=== PATIENT | male | born 1950 | race Caucasian/White ===

== ENCOUNTER 2019-05-17 21:19 | Inpatient (IN) | payer OTHER, SELFPAY ==
--- NOTE | ~2019-05-17 | CT_ITS ---
EXAMINATION: CT brain wo con EXAM DATE: 05/20/2019 19:43 INDICATION: Temporary change in awareness, confusion, hallucinations. TECHNIQUE: Spiral CT of the head was performed without contrast. Axial, coronal and sagittal images were reviewed. The dose-length product (DLP) for this examination was 605.33 mGy-cm. The exposure w as tailored according to patient size, and iterative reconstruction (ASIR) was used as additional dos e reduction technique. There is no prior study for comparison. FINDINGS: There is no acute intraparenchymal hemorrhage. No evidence of intraparenchymal brain mass lesion. No evidence of acute infarction. Please note that initial head CT has limited sensitivity f or small or acute infarctions. There is mild periventricular and subcortical hypodensity, nonspecific but probably related to small vessel ischemic disease. There is mild prominence of the sulci and v entricles related to cerebral atrophy. There is intracranial carotid arteriosclerosis. There are n o extra-axial collections. There is no mass effect or midline shift. The orbits are unremarkable. Soft tissue is unremarkable. The visualized sinuses and mastoid air cells are well aerated. IMPRESSION: 1. No acute intracranial findings. 2. Chronic age related findings. Reviewed, dictated and finalized at location A.
--- NOTE | ~2019-05-17 | XR_ITS ---
XR chest 2V 05/19/2019 09:17 Indication: Hypoxia. Cough. CHF. Procedure: AP portable chest Comparison: No prior studies Findings: Cardiomegaly. Asymmetric airspace disease, right greater than left Bilateral pleural effusi ons, right greater than left. Pacemaker leads in expected position. Impression: 1: Bilateral asymmetric airspace disease, likely edema. 2: Bilateral pleural effusions, right greater than left. 3: Cardiomegaly. Reviewed, dictated and finalized at location A. Impression: 1: Bilateral asymmetric airspace disease, likely edema. 2: Bilateral pleural effusions, right greater than left. 3: Cardiomegaly.
[2019-05-17 21:25] VITALS: BP 107/69; PULSE 55; RESP 26; TEMP 36.9; O2SAT 95
[2019-05-17 21:46] VITALS: BP 112/85; PULSE 55; RESP 25; O2SAT 97
[2019-05-17 22:11] LABS: Basophils Percent Auto 0.2 % (0.2-1.2); Eosinophils Percent Auto 0.2 % (0-4.4); Hematocrit 39.9 % (42.0-52.0); Hemoglobin 12.5 g/dL (14.0-18.0); Immature Granulocyte Absolute 0.05 K/mm3 (0.00-0.031); Immature Granulocyte Percent A 0.6 % (0-0.5); Lymphocytes Absolute Auto 0.51 K/mm3 (0.9-3.2); Mean Corpuscular HGB Conc 31.3 g/dl (32-36); Mean Corpuscular Hemoglobin 30.2 pg (26-34); Mean Corpuscular Volume 96.4 fl (80-100); Mean Platelet Volume 12.8 fl (7.4-10.4); Monocytes Absolute Auto 0.5 K/mm3 (0.1-0.6); Monocytes Percent Auto 5.9 % (2.6-8.5); Neutrophils Absolute Auto 7.3 K/mm3 (1.3-6.7); Neutrophils Percent Auto 87.1 % (45.5-73.1); Nucleated Red Blood Cells Perc 0.4 % (0.0-0.2); Platelet Count Result 276 k/mm3 (150-375); Red Blood Count 4.14 M/mm3 (4.6-6.20); Red Cell Distribution Width 19.6 % (11.5-14.5); White Blood Count 8.4 K/mm3 (4.5-10.0)
--- NOTE | 2019-05-17 22:32 | ED.GIBLEED ---
HPI - GI Bleed General Chief complaint: GI Bleed Stated complaint: poss gi bleed Time Seen by Provider: 05/17/19 22:00 Source: patient and RN notes reviewed Mode of arrival: EMS Limitations: no limitations History of Present Illness HPI Narrative: Pt is a 68 y/o male presenting to the ED c/o hematomchezia. Pt reports he has been experiencing stools with bright red blood. Pt responds it comes and goes when asked how long he has been experiencing the bleeding. Pt also reports coccyx pain for 1.5 weeks, but denies abdominal pain. Pt denies a Hx of hemorrhoids. Onset (ago): unknown Pain Consistency: other (None) Associated symptoms: other (Coccyx pain) Related Data Allergies Allergy/AdvReac Type Severity Reaction Status Date / Time hydrocortisone Allergy Unknown Verified 05/17/19 23:08 [From Cortizone-10] Review of Systems Review of Systems: All systems reviewed & are unremarkable except as noted in HPI and below Gastrointestinal: Gastrointestinal: Denies abdominal pain and Reports hematochezia Musculoskeletal: Musculoskeletal: Reports other (Coccyx pain) [facility] Social History Social History Smoking status: Unknown if ever smoked Exam Narrative: Exam Narrative: GENERAL: Ill-appearing, Pale, and in no acute distress. HEAD: Normocephalic, atraumatic. EYES: PERRLA and EOMI. ENT: Nares clear, Mucous membranes moist. NECK: Supple. CHEST: Clear to auscultation. No respiratory distress. HEART: Regular rate and rhythm. No murmur heard. Normal peripheral pulses. ABDOMEN: Soft, non tender, non distended, normal active bowel sounds. Rectal Maroon stool in the rectum EXTREMITIES: Normal range of motion. has edema. SKIN: Warm, dry, no rash. NEURO: No focal deficits. Alert and oriented x3. PSYCH: Normal mood and affect. Course Course Emergency Course: informed pt about his lab will admit to the hospital . Discussed with Dr. Hodges agreed to admit. Vital Signs Vital signs: Vital Signs Temperature 36.9 C 05/17/19 21:25 Pulse Rate 55 L 05/17/19 21:25 Respiratory Rate 26 H 05/17/19 21:25 Blood Pressure 107/69 05/17/19 21:25 Pulse Oximetry 95 05/17/19 21:25 Temperature 36.9 C 05/17/19 21:25 Pulse Rate 53 L 05/17/19 23:38 Respiratory Rate 25 H 05/17/19 23:38 Blood Pressure 109/63 05/17/19 23:38 Pulse Oximetry 97 05/17/19 23:38 MDM - GI Bleed Lab Data Result diagrams: 05/17/19 22:06 05/17/19 22:34 Labs: Lab Results 05/17/19 05/17/19 05/17/19 Range/Units 22:06 22:34 22:34 WBC 8.4 (4.5-10.0) K/mm3 RBC 4.14 L (4.6-6.20) M/mm3 Hgb 12.5 L (14.0-18.0) g/dL Hct 39.9 L (42.0-52.0) % MCV 96.4 (80-100) fl MCH 30.2 (26-34) pg MCHC 31.3 L (32-36) g/dl RDW 19.6 H (11.5-14.5) % Plt Count 276 (150-375) k/mm3 MPV 12.8 H (7.4-10.4) fl Immature Gran % (Auto) 0.6 H (0-0.5) % Neut % (Auto) 87.1 H (45.5-73.1) % Lymph % (Auto) 6.0 L (18.3-44.2) % [place] % (Auto) 5.9 (2.6-8.5) % Eos % (Auto) 0.2 (0-4.4) % Baso % (Auto) 0.2 (0.2-1.2) % Lymph # (Auto) 0.51 L (0.9-3.2) K/mm3 [place] # (Auto) 0.5 (0.1-0.6) K/mm3 Eos # (Auto) 0.0 (0-0.3) K/mm3 Baso # (Auto) 0.0 (0.0-0.1) K/mm3 Abs Immat Gran (auto) 0.05 H (0.00-0.031) K/mm3 Absolute Neuts (auto) 7.3 H (1.3-6.7) K/mm3 Absolute Nucleated RBC 0.0 (0.0-0.012) K/mm3 Nucleated RBC % 0.4 H (0.0-0.2) % PT 31.0 H (11.1-14.7) Seconds INR 3.0 Sodium 130 L (137-145) mmol/L Potassium 3.3 L (3.4-5.0) mmol/L Chloride 87 L (98-107) mmol/L Carbon Dioxide 35 H (22-30) mmol/L BUN 41 H (9-20) mg/dL Creatinine 1.50 H (0.7-1.3) mg/dL Estim Creat Clear Calc Not Reportable Estimated GFR 47 L (59 - ) Glucose 254 H (75-110) mg/dL Calcium 8.2 L (8.4-10.2) mg/dL Total Bilirubin 1.6 H (0.2-1.3) mg/dL AST 68 H (17-59)
[2019-05-17 22:52] LABS: Alanine Aminotransferase 69 U/L (4-50); Alkaline Phosphatase 158 U/L (38-126); Aspartate Amino Transferase 68 U/L (17-59); Bilirubin,Total 1.6 mg/dL (0.2-1.3); Blood Urea Nitrogen 41 mg/dL (9-20); Calcium 8.2 mg/dL (8.4-10.2); Carbon Dioxide 35 mmol/L (22-30); Chloride 87 mmol/L (98-107); Estimated Glomerular Filt Rate 47; Glucose 254 mg/dL (75-110); Potassium 3.3 mmol/L (3.4-5.0); Sodium 130 mmol/L (137-145)
[2019-05-17] MEDS: SODIUM CHLORIDE 0.9% IV 1,000 ML 125 ML IV CONT (23:09)
[2019-05-17] MEDS: MORPHINE SULFATE 4 MG/ML INJ IV PUSH (23:10)
[2019-05-17] MEDS: ONDANSETRON INJ 4 MG/2 ML VIAL IV PUSH (23:10)
[2019-05-17 23:17] VITALS: BP 92/55; PULSE 58; RESP 19; O2SAT 95
[2019-05-17 23:38] VITALS: BP 109/63; PULSE 53; RESP 25; O2SAT 88; O2SAT 97
[2019-05-18] VITALS (10 sets, daily range): BP systolic 107–113; BP diastolic 66–83; PULSE 2–66; RESP 16–18; TEMP 36.2–36.4; O2SAT 92–100; BMI 27.7
[2019-05-18 00:36] LABS: Hematocrit 39.5 % (42.0-52.0); Hemoglobin 12.4 g/dL (14.0-18.0)
--- NOTE | 2019-05-18 02:28 | ADMGEN ---
This patient, Jorden Brown, was admitted to Medical Room 343-01. Patient/family oriented to hospital policies and general routines including ID bracelet, bed and alarms, visiting hours, pain management, procedures, bathroom and other care routines, personal items, smoking policy, room service/diet, and visiting hours. Valuables list has been completed. Information on how to activate the Rapid Response Team has been discussed. Patient/Family are encouraged to report perceived risks to care and to ask questions if they do not understand what they are told or what they should do.
[2019-05-18 05:51] LABS: Hematocrit 38.2 % (42.0-52.0); Hemoglobin 11.8 g/dL (14.0-18.0)
--- NOTE | 2019-05-18 05:54 | PM.IMHP ---
H&P: HPI History of Present Illness Chief complaint: Bloody stools Narrative: Date and time of patient contact: 05/18/2019 at 5:55 a.m. Jorden Brown is a 68 year old male with a complex past medical history including CVA, CHF, chronic kidney disease, insulin-dependent diabetes, and chronic decubitus ulcers who presented to the ER from [facility] via EMS due to bloody stools. The patient had dark red stools that had the appearance of ?blue berries in it.? In the ER the patient had had a melanotic stool. When the patient arrived on the medical floor he had a had a small amount of dark stool with blood present that smelled of melena. He had labs drawn at the senior care on the which demonstrated hemoglobin of 12. He had chest x-ray also performed on the which demonstrated central venous congestion without overt pulmonary edema. Evidently influenza had been moving throughout the senior care and so the patient had been placed on empiric Tamiflu but was not having influenza symptoms. The patient is unable to provide much history can only answer yes or no questions. He is confused but oriented to person and place. The patient has known decubitus ulcers to his left heel that is unstageable. Has a known superficial ulcers (5-6) on his coccyx. Source of information: ER records and senior care records. Review of Systems Review of Systems: ROS unobtainable: unobtainable due to mental condition [facility] Past Medical History Medical History (Updated 05/18/19 @ 07:03 by Ruby Hodges DO) Chronic anticoagulation Chronic kidney disease, stage 3 Combined systolic and diastolic congestive heart failure Coronary artery disease Diabetic peripheral neuropathy Diabetic retinopathy Dupuytren contracture Essential hypertension Ischemic cardiomyopathy Left bundle branch block Major depressive disorder Moderate protein-calorie malnutrition Prostate cancer PTSD (post-traumatic stress disorder) Type 2 diabetes mellitus with insulin therapy Vitamin D deficiency Surgical History Surgical History (Updated 05/18/19 @ 06:39 by Ruby Hodges DO) History of amputation of hallux Right great toe amputation Presence of combination internal cardiac defibrillator (ICD) and pacemaker Family History Family History (Updated 05/18/19 @ 06:40 by Ruby Hodges DO) Other Unknown family medical history Social History Social History (Updated 05/18/19 @ 06:50 by Ruby J. Hopen, DO) Social History: Primary care physician: Dr. Roberto Hernandez Code status: Do not intubate Smoking status: Never smoker Alcohol intake: former Substance use: never Living arrangements: senior care Additional living arrangements comments: [facility]. Additional occupation/education comments: Disabled Gender identity (if verbalized by the patient): Male Spiritual care concerns: No Agree to blood products: Yes Meds Home Medications and Allergies Home Medications Medication Instructions Recorded Confirmed Type acetaminophen [Tylenol] 650 mg PO Q4H PRN 05/18/19 05/18/19 History albuterol sulfate 2.5 mg INHALATION Q8H 05/18/19 05/18/19 History apixaban [Eliquis] 5 mg PO BID 05/18/19 05/18/19 History carvedilol 12.5 mg PO BID 05/18/19 05/18/19 History collagenase clostridium histo. 1 applic TOPICAL DAILY 05/18/19 05/18/19 History [Santyl] furosemide 20 mg PO DAILY 05/18/19 05/18/19 History hydrocortisone [Anusol-HC] 1 applic DC BID 05/18/19 05/18/19 History insulin glargine [Lantus Solostar 6 unit SUBCUT DAILY 05/18/19 05/18/19 History U-100 Insulin] lactulose 15 ml PO DAILY PRN 05/18/19 05/18/19 History lidocaine [Lidoderm] 1 patch TOPICAL DAILY 05/18/19 05/18/19 History loperamide 2 mg PO QID PRN 05/18/19 05/18/19 History metoclopramide HCl 10 mg PO ACHS 05/18/19 05/18/19 History ondansetron HCl [Zofran] 4 mg PO Q6H PRN 05/18/19 05/18/19 History oseltamivir [Tamiflu] 75 mg P
[2019-05-18] MEDS: METOCLOPRAMIDE HCL 10 MG TABLET PO (06:24)
[2019-05-18] MEDS: POTASSIUM CHLORIDE 20 MEQ PACKET (FOR LIQUID) 40 MEQ PO (07:37)
[2019-05-18 08:14] LABS: Glucose Point of Care 188 (65-105)
[2019-05-18 09:12] LABS: Basophils Percent Auto 0.3 % (0.2-1.2); Eosinophils Absolute Auto 0.1 K/mm3 (0-0.3); Eosinophils Percent Auto 1.5 % (0-4.4); Hematocrit 41.2 % (42.0-52.0); Hemoglobin 12.7 g/dL (14.0-18.0); Immature Granulocyte Absolute 0.03 K/mm3 (0.00-0.031); Immature Granulocyte Percent A 0.4 % (0-0.5); Lymphocytes Absolute Auto 0.49 K/mm3 (0.9-3.2); Lymphocytes Percent Auto 6.6 % (18.3-44.2); Mean Corpuscular HGB Conc 30.8 g/dl (32-36); Mean Corpuscular Hemoglobin 30.2 pg (26-34); Mean Corpuscular Volume 98.1 fl (80-100); Mean Platelet Volume 12.5 fl (7.4-10.4); Monocytes Absolute Auto 0.5 K/mm3 (0.1-0.6); Monocytes Percent Auto 6.2 % (2.6-8.5); Neutrophils Absolute Auto 6.3 K/mm3 (1.3-6.7); Platelet Count Result 268 k/mm3 (150-375); Red Cell Distribution Width 19.6 % (11.5-14.5); White Blood Count 7.4 K/mm3 (4.5-10.0)
[2019-05-18 09:24] LABS: Magnesium 1.8 mg/dL (1.6-2.3)
[2019-05-18 09:27] LABS: Alanine Aminotransferase 66 U/L (4-50); Alkaline Phosphatase 144 U/L (38-126); Aspartate Amino Transferase 55 U/L (17-59); Bilirubin,Total 1.6 mg/dL (0.2-1.3); Blood Urea Nitrogen 38 mg/dL (9-20); Calcium 8.4 mg/dL (8.4-10.2); Carbon Dioxide 39 mmol/L (22-30); Chloride 90 mmol/L (98-107); Estimated CRCL calculation 48 ml/min; Estimated Glomerular Filt Rate 47; Glucose 194 mg/dL (75-110); Potassium 3.2 mmol/L (3.4-5.0); Sodium 134 mmol/L (137-145)
[2019-05-18] MEDS: COLLAGENASE OINT 30 GM TUBE 1 APPLIC TOPICAL (10:18)
[2019-05-18] MEDS: LIDOCAINE 5% PATCH 1 PATCH TOPICAL (10:19)
[2019-05-18] MEDS: INSULIN GLARGINE (*BKC) 100 UNITS/ML 6 UNITS SUB-Q (10:20)
--- NOTE | 2019-05-18 11:55 | PM.IMPN ---
Progress Note: A&P Assessment and Plan (1) Acute lower GI bleeding: Code(s): K92.2 - Gastrointestinal hemorrhage, unspecified Status: Acute Assessment and Plan: Eliquis is on hold. H&H has been stable this morning, 12.7/41.2. Stable. Dr. Buchanan evaluated the patient and believes at this time conservative measures are best with holding his Eliquis and monitoring this symptoms. Will continue to monitor serial H&Hs. Gastroenterology has been consulted and their input is appreciated. (2) Acute combined systolic and diastolic congestive heart failure: Code(s): I50.41 - Acute combined systolic (congestive) and diastolic (congestive) heart failure Status: Acute Assessment and Plan: The patient has acute CHF exacerbation with 3+ pitting edema to bilateral lower legs and inspiratory crackles to bilateral lungs and has been found to be hypoxic requiring 2 L of oxygen at rest. Patient is normally on Lasix p.o. 20 mg daily and will switch this to IV Lasix 20 mg b.i.d.. Will monitor the patient's urine output, weights daily, symptoms and respiratory status. (3) Elevated LFTs: Code(s): R94.5 - Abnormal results of liver function studies Status: Acute Assessment and Plan: The patient has elevated liver enzymes and states this has been an issue since his admission at [facility]. Will obtain records from a [facility] for for information about his admission. (4) Hypokalemia: Code(s): E87.6 - Hypokalemia Status: Acute Assessment and Plan: Potassium was 3.3 on arrival and he was given oral potassium 40 mEq 1 time. Will recheck potassium in the morning along with magnesium. (5) Diabetes mellitus with hyperglycemia, with long-term current use of insulin: Qualifiers: Diabetes mellitus type: type 2 Qualified Code(s): E11.65 - Type 2 diabetes mellitus with hyperglycemia; Z79.4 - assistant terminal manager (current) use of insulin Code(s): E11.65 - Type 2 diabetes mellitus with hyperglycemia; Z79.4 - penitentiary (current) use of insulin Status: Acute Assessment and Plan: Will continue patient's home Lantus. Serum glucose this morning was 194. Will add moderate sliding scale insulin with Accu-Cheks ACHS. Hypoglycemic protocol in place. (6) Chronic kidney disease, stage 3: Code(s): N18.3 - Chronic kidney disease, stage 3 (moderate) Status: Acute Assessment and Plan: Patient's creatinine is 1.5 which seems like it is at his baseline. Will continue monitoring renal function daily and get his labs from [facility]. (7) Gastroparesis: Code(s): K31.84 - Gastroparesis Status: Acute Assessment and Plan: Patient was diagnosed with gastroparesis at [facility] and was started on Reglan. The patient's family states since starting Reglan he has had some confusion and delusions. Reglan will be held at this time. Will see what GI recommends. Time Spent With Patient Time with patient: 25 - 35 minutes Subjective Date/time seen: 05/18/19 11:55 Interval history: Date of service 05/18/2019: Patient reports feeling short of breath along with a productive cough. Family states since leaving [facility] recently he was had increased swelling to his legs, worsening shortness of breath, productive cough and sound like there is ?fluid in his chest?. The patient has had similar symptoms of 4 with CHF exacerbation. Patient denies any chest pain, fever, chills, nausea, vomiting, abdominal pain, or any other symptoms. The patient falls asleep intermittently during examination and is not a good h
--- NOTE | 2019-05-18 11:59 | WPDGICN ---
Assessment and Plan Assessment and plan (1) Acute lower GI bleeding: Code(s): K92.2 - Gastrointestinal hemorrhage, unspecified Status: Acute Assessment and Plan: family mentioned that had recent endoscopic evaluation, will get records hb stable ~ 12, holding eliquis for now no need to repeat scopes unless ongoing bleeding again continue with medical treatment, ppi daily (2) Diabetes mellitus with hyperglycemia, with long-term current use of insulin: Qualifiers: Diabetes mellitus type: type 2 Qualified Code(s): E11.65 - Type 2 diabetes mellitus with hyperglycemia; Z79.4 - [facility] (current) use of insulin Code(s): E11.65 - Type 2 diabetes mellitus with hyperglycemia; Z79.4 - long term care phlebotomist (current) use of insulin Status: Acute (3) Chronic anticoagulation: Code(s): Z79.01 - long term care phlebotomist (current) use of anticoagulants Status: Acute (4) Combined systolic and diastolic congestive heart failure: Qualifiers: Heart failure chronicity: unspecified Qualified Code(s): I50.40 - Unspecified combined systolic (congestive) and diastolic (congestive) heart failure Code(s): I50.40 - Unspecified combined systolic (congestive) and diastolic (congestive) heart failure Status: Acute Assessment and Plan: by primary team (5) Gastroparesis: Code(s): K31.84 - Gastroparesis Status: Acute Assessment and Plan: recently diagnosed, reglan discontinued GI Consult Note Consult date/time: 05/18/19 11:59 Reason for consult: GIB HPI: Jorden Brown is a 68 year old male with complex medical history including CVA, CHF, chronic kidney disease, insulin-dependent diabetes, chronic decubitus ulcers with a prolonged hospitalization at [facility] for ~ 25 days and released recently. History is obtained from records, he is poor historian. Family mentioned that he had GI work up including egd/colonoscopy (I do not have results), diagnosed also with gastroparesis and started on reglan but apparently developed side effect. He was brought here from the skilled nursing because noted blood in stool, hb stable ~ 12, he has been on eliquis. No more report of bleeding in the hospital. Review of Systems Review of Systems: ROS unobtainable: unobtainable due to mental status PMF[facility] Past Medical History Medical History (Updated 05/18/19 @ 12:06 by Sergio Fischer MD) Chronic anticoagulation Chronic kidney disease, stage 3 Combined systolic and diastolic congestive heart failure Coronary artery disease Diabetic peripheral neuropathy Diabetic retinopathy Dupuytren contracture Essential hypertension Gastroparesis Ischemic cardiomyopathy Left bundle branch block Major depressive disorder Moderate protein-calorie malnutrition Prostate cancer PTSD (post-traumatic stress disorder) Type 2 diabetes mellitus with insulin therapy Vitamin D deficiency Surgical History Surgical History (Updated 05/18/19 @ 06:39 by Ruby Hodges DO) History of amputation of hallux Right great toe amputation Presence of combination internal cardiac defibrillator (ICD) and pacemaker Family History Family History (Updated 05/18/19 @ 06:40 by Ruby Hodges DO) Other Unknown family medical history Social History Social History (Updated 05/18/19 @ 06:50 by Ruby Hodges DO) Social History: Primary care physician: Dr. Roberto Hernandez Code status: Do not intubate Smoking status: Never smoker Alcohol intake: former Substance use: never Living arrangements: skilled nursing Additional living arrangements comments: [facility]. Additional occupation/education comments: Disabled Gender identity (if verbalized by the patient): Male Spiritual care concerns: No Agree to blood products: Yes Meds Home Medications and Allergies Home Medications Medication Instructions Recorded Confirmed Type acetaminophen [Tylenol] 650 mg PO Q4
[2019-05-18 12:26] LABS: Glucose Point of Care 201 (65-105)
[2019-05-18 12:32] LABS: Hematocrit 38.9 % (42.0-52.0); Hemoglobin 12.2 g/dL (14.0-18.0)
[2019-05-18] MEDS: INSULIN ASPART (*BKC) 100 UNITS/ML SUB-Q (12:34)
[2019-05-18 16:52] LABS: Glucose Point of Care 179 (65-105)
[2019-05-18] MEDS: FUROSEMIDE INJ 40 MG/4 ML VIAL 20 MG IV PUSH (17:19)
[2019-05-18 18:08] LABS: Hematocrit 39.2 % (42.0-52.0); Hemoglobin 12.1 g/dL (14.0-18.0)
[2019-05-18] MEDS: carvediloL 12.5 MG TABLET PO (20:28)
[2019-05-18 21:50] LABS: Glucose Point of Care 133 (65-105)
--- NOTE | 2019-05-19 03:14 | PC.NURSE ---
Daylight Savings Time For Daylight Savings Time Ending in the Fall - Clocks are moved back. For Daylight Savings Time Beginning in the Spring - Clocks are moved ahead. For [facility], the time of change occurs at 0200 hrs. Time is taken from the artillery or naval gunfire observer. This entry on the patient's chart recognizes the change in time reflected during documentation. Example: 2 entries for vital signs may be charted for 0200 hrs.
[2019-05-19 06:00] VITALS: BP 97/67; PULSE 50; RESP 18; TEMP 36; O2SAT 95
[2019-05-19 06:03] LABS: IFOB Positive Control Positive; Immunochemical Fecal Occult Bl Positive (N)
[2019-05-19 06:10] LABS: Ammonia < 9 umol/L (9-30)
[2019-05-19 06:18] LABS: Hemoglobin 11.7 g/dL (14.0-18.0); Mean Corpuscular HGB Conc 30.8 g/dl (32-36); Mean Corpuscular Hemoglobin 30.5 pg (26-34); Mean Platelet Volume 12.1 fl (7.4-10.4); Platelet Count Result 240 k/mm3 (150-375); Red Blood Count 3.84 M/mm3 (4.6-6.20); Red Cell Distribution Width 19.6 % (11.5-14.5); White Blood Count 6.7 K/mm3 (4.5-10.0)
[2019-05-19 06:32] LABS: Potassium 2.9 mmol/L (3.4-5.0)
[2019-05-19 06:37] LABS: Alanine Aminotransferase 55 U/L (4-50); Albumin Level 2.8 g/dL (3.5-5.1); Alkaline Phosphatase 123 U/L (38-126); Aspartate Amino Transferase 44 U/L (17-59); Bilirubin,Total 1.6 mg/dL (0.2-1.3); Blood Urea Nitrogen 37 mg/dL (9-20); Calcium 8.1 mg/dL (8.4-10.2); Carbon Dioxide > 40 mmol/L (22-30); Chloride 89 mmol/L (98-107); Estimated CRCL calculation 48 ml/min; Estimated Glomerular Filt Rate 47; Glucose 143 mg/dL (75-110); Sodium 135 mmol/L (137-145)
--- NOTE | 2019-05-19 08:55 | PM.IMPN ---
Progress Note: A&P Assessment and Plan (1) Acute lower GI bleeding: Code(s): K92.2 - Gastrointestinal hemorrhage, unspecified <Mehnaz L. NATALIE Berger - Last Filed: 05/19/19 09:59> Status: Acute <Mehnaz MensahlongthorNATALIE - Last Filed: 05/19/19 09:59> Assessment and Plan: Eliquis is on hold. H&H has been stable this morning, 11.7/38. Stable. Dr. Buchanan evaluated the patient and believes at this time conservative measures are best with holding his Eliquis and monitoring this symptoms. Will continue to monitor serial H&Hs. Gastroenterology has been consulted and their input is appreciated. - EGD on 04/13/2019 showed Duodenum was normal. The entire stomach was normal. The esophagus was normal. - Colonoscopy on 05/01/2019 showed 5 mm polyp in the descending colon, Which was removed. A few 7 mm ulcers were found in the distal rectum. No acute bleeding. Terminal ileum normal. <Mehnaz Barron NATALIE Berger - Last Filed: 05/19/19 09:59> (2) Acute combined systolic and diastolic congestive heart failure: Code(s): I50.41 - Acute combined systolic (congestive) and diastolic (congestive) heart failure <Mehnazlance Berger PA-C - Last Filed: 05/19/19 09:59> Status: Acute <Mehnaz Barron NATALIE Berger - Last Filed: 05/19/19 09:59> Assessment and Plan: The patient has acute CHF exacerbation with 3+ pitting edema to bilateral lower legs and inspiratory crackles to bilateral lungs and has been found to be hypoxic requiring 2 L of oxygen at rest. Today, the patient is resting comfortably on room air, slight crackles to lungs, improved lower extremity edema. Will continue with Lasix IV 20 mg BID. Will monitor the patient's urine output, weights daily, symptoms and respiratory status. - Reviewed records from [facility] state that his last echocardiogram November of 2018 showed systolic ejection fraction of 30% and grade 2 diastolic dysfunction. - Echocardiogram from September 2018 showed severe systolic dysfunction, EF 28 25% with global hypokinesis. Moderate mitral valve regurgitation. Possible bicuspid aortic valve. Aortic cusps appear moderately calcified. Moderate aortic stenosis. Mild to moderate aortic valve regurgitation. <Mehnaz Barron NATALIE Berger - Last Filed: 05/19/19 09:59> (3) Elevated LFTs: Code(s): R94.5 - Abnormal results of liver function studies <Mehnaz Barron NATALIE Berger - Last Filed: 05/19/19 09:59> Status: Acute <Mehnaz Barron NATALIE Berger - Last Filed: 05/19/19 09:59> Assessment and Plan: The patient has elevated liver enzymes and states this has been an issue since his admission at [facility]. On review of the patient's records from [facility] his LFTs were initially elevated in the 300's. Then throughout his hospitalization they ranged between 60 and 120 intermittently. Today, AST 44 and ALT 55, normal Alk Phos 123. Ammonia level was normal <9. Improved today. No need to further evaluate liver functions. Reviewed Records from [facility] 04/12/2019 showing: - RUQ US - Atrophy of the left lobe of the liver. No hepatic mass noted. Mildly thickened gallbladder wall probably related to relatively collapsed gallbladder. No definitive gallstones or pericholecystic fluid. Pancreas and upper abdominal aorta aorta obscured. - CT Abd/Pelvis W/o Contrast- no acute abnormality in the abdomen or pelvis. Indeterminate bilateral lower lobe pulmonary nodules, possibly infectious/ inflammatory. Follow-up noncontrast CT recommitted in 3 months. <Mehnaz Barron NATALIE Berger - Last Filed: 05/19/19 09:59> (4) Elevated bilirubin: Code(s): R17 - Unspecified jaundice <Mehnaz Berger PA-C - Last Filed: 05/19/19 09:59> Status: Acute <SHAKEEL Ordoñez
[2019-05-19 09:16] LABS: Magnesium 1.9 mg/dL (1.6-2.3)
[2019-05-19] MEDS: MAGNESIUM SULF 2 GM/WATER 50ML 2 GM/50 ML BAG IVPB (09:55)
[2019-05-19] MEDS: POTASSIUM CHLORIDE 20 MEQ TABLET 60 MEQ PO (09:56)
[2019-05-19] MEDS: FUROSEMIDE INJ 40 MG/4 ML VIAL 20 MG IV PUSH ×2 (09:56→16:51)
[2019-05-19 09:57] VITALS: PULSE 56
[2019-05-19] MEDS: carvediloL 12.5 MG TABLET PO ×2 (09:57→21:19)
[2019-05-19] MEDS: COLLAGENASE OINT 30 GM TUBE 1 APPLIC TOPICAL (10:00)
[2019-05-19 10:06] LABS: Glucose Point of Care 152 (65-105)
[2019-05-19] MEDS: LIDOCAINE 5% PATCH 1 PATCH TOPICAL (10:09)
[2019-05-19] MEDS: INSULIN GLARGINE (*BKC) 100 UNITS/ML 6 UNITS SUB-Q (10:23)
[2019-05-19 10:30] VITALS: PULSE 56; RESP 18; O2SAT 95
--- NOTE | 2019-05-19 11:58 | WPDGIPROGNO ---
Progress Note: A&P Assessment and Plan (1) Acute lower GI bleeding: Code(s): K92.2 - Gastrointestinal hemorrhage, unspecified Status: Acute Assessment and Plan: hb stable, reviewed recent EGD (normal) and colonoscopy (small descending polyp removed with bx and also small rectal ulcers), wonder if could have been source of bleeding again. No need to repeat endoscopic evaluation. Supportive care, ok to advance diet as tolerated per speech recommendation. (2) Rectal ulceration: Code(s): K62.6 - Ulcer of anus and rectum Status: Acute (3) Elevated LFTs: Code(s): R94.5 - Abnormal results of liver function studies Status: Acute Assessment and Plan: CT scan at another hospital reviewed, lft's trending down. Maybe multifactorial (uncontrolled DM, heart failure, etc) (4) Acute combined systolic and diastolic congestive heart failure: Code(s): I50.41 - Acute combined systolic (congestive) and diastolic (congestive) heart failure Status: Acute (5) Diabetes mellitus with hyperglycemia, with long-term current use of insulin: Qualifiers: Diabetes mellitus type: type 2 Qualified Code(s): E11.65 - Type 2 diabetes mellitus with hyperglycemia; Z79.4 - [facility]ent[facility] (current) use of insulin Code(s): E11.65 - Type 2 diabetes mellitus with hyperglycemia; Z79.4 - penitentiary (current) use of insulin Status: Acute (6) Chronic kidney disease, stage 3: Code(s): N18.3 - Chronic kidney disease, stage 3 (moderate) Status: Acute Assessment and Plan: stable (7) Chronic anticoagulation: Code(s): Z79.01 - ferry terminal supervisor (current) use of anticoagulants Status: Acute Subjective Date/time seen: 05/19/19 11:58 Interval history: no findings, he is more awake and cooperated with speech therapy. No more bleeding. Review of Systems Review of Systems: All systems reviewed & are unremarkable except as noted in HPI and below Exam Const: General: comfortable and no acute distress HENMT: General nose exam: Normal nares present Eyes: General: appearance normal, both eyes and all related structures Neck: Neck: no JVD Chest: Chest palpation & inspection: Pacemaker present Resp: Auscultation: clear to auscultation bilaterally Cardio: Rate: regular rate Rhythm: regular rhythm GI: Inspection: non-distended GI Palp: Yes Soft to palpation, No Tenderness to palpation present (GI) and No Guarding due to palpation present (GI) Skin: General skin exam: normal color Neuro: Speech: normal speech Other: he is more alert and awake today, good spirits Extrem: General: pedal edema Psych: Thought content: No Hallucination(s) present Objective Data Vital Signs Vital Signs: Vital Signs - 24 hr 05/18/19 14:00 05/18/19 20:00 05/18/19 20:17 Temperature 97.6 F 97.1 F L Pulse Rate 60 56 L Respiratory Rate 16 18 Blood Pressure 112/78 110/66 Pulse Oximetry 96 96 92 05/18/19 20:28 05/19/19 06:00 05/19/19 09:57 Temperature 96.8 F L Pulse Rate 62 50 L 56 L Respiratory Rate 18 Blood Pressure 97/67 L Pulse Oximetry 95 05/19/19 10:30 Temperature Pulse Rate 56 L Respiratory Rate 18 Blood Pressure Pulse Oximetry 95 Intake/Output Intake/Output: Intake & Output 05/16/19 05/17/19 05/18/19 05/20/19 23:59 23:59 23:59 00:59 Intake Total 2090 150 Output Total 200 Balance 2090 -50 Meds/Results Medications: Active Medications Generic Name Dose Route Start Last Admin Trade Name Freq PRN Reason Stop Dose Admin Acetaminophen 650 mg 05/18/19 02:45 Tylenol Tablet PO Q4H PRN Pain Rated 1-3 Carvedilol 12.5 mg 05/18/19 21:00 05/19/19 09:57 Coreg PO 12.5 mg Q12HR KALPESH Administration Collagenase 1 applic 05/18/19 09:00 05/19/19 10:00 Santyl Oint TOPICAL 1 applic DAILY KALPESH Administration Dextrose 12.5 gm 05/18/19 02:54 Dextrose 50% Syringe IV PUSH PRN PRN Hypoglyce
[2019-05-19] MEDS: POTASSIUM CHLORIDE 20 MEQ PACKET (FOR LIQUID) PO (12:42)
[2019-05-19 12:52] LABS: Glucose Point of Care 155 (65-105)
--- NOTE | 2019-05-19 13:09 | PCOTNOTE ---
Attempted OT evaluation. Patient has open wounds on feet, spoke with MAIL HANDLER ASSISTANT, wait for therapy pending wound consult.
[2019-05-19 14:00] VITALS: BP 109/78; PULSE 61; RESP 20; TEMP 36.7; O2SAT 95
--- NOTE | 2019-05-19 15:36 | PCPTNOTE ---
Attempted PT/OT eval today....pt has open wounds on feet bilaterally...will await WOUND CARE assessment prior to seeing patient and weightbearing on his feet
[2019-05-19 16:51] LABS: Glucose Point of Care 160 (65-105)
[2019-05-19] MEDS: ACETAMINOPHEN 325 MG TABLET 650 MG PO (19:04)
[2019-05-19 21:19] VITALS: PULSE 58
[2019-05-19 21:26] LABS: Glucose Point of Care 212 (65-105)
[2019-05-19 22:00] VITALS: BP 106/64; PULSE 52; RESP 16; TEMP 36.6; O2SAT 95
[2019-05-20 06:00] VITALS: BP 102/59; PULSE 89; RESP 16; TEMP 36.6; O2SAT 96
[2019-05-20 06:38] LABS: Hematocrit 40.6 % (42.0-52.0); Hemoglobin 12.4 g/dL (14.0-18.0); Mean Corpuscular HGB Conc 30.5 g/dl (32-36); Mean Corpuscular Hemoglobin 30.2 pg (26-34); Mean Platelet Volume 12.2 fl (7.4-10.4); Platelet Count Result 243 k/mm3 (150-375); Red Cell Distribution Width 19.6 % (11.5-14.5); White Blood Count 6.2 K/mm3 (4.5-10.0)
[2019-05-20 06:52] LABS: Alanine Aminotransferase 45 U/L (4-50); Albumin Level 2.8 g/dL (3.5-5.1); Alkaline Phosphatase 120 U/L (38-126); Aspartate Amino Transferase 34 U/L (17-59); Bilirubin,Total 1.5 mg/dL (0.2-1.3); Blood Urea Nitrogen 36 mg/dL (9-20); Calcium 8.2 mg/dL (8.4-10.2); Carbon Dioxide 36 mmol/L (22-30); Chloride 93 mmol/L (98-107); Estimated CRCL calculation 48 ml/min; Estimated Glomerular Filt Rate 47; Glucose 163 mg/dL (75-110); Magnesium 2.2 mg/dL (1.6-2.3); Potassium 3.8 mmol/L (3.4-5.0); Sodium 133 mmol/L (137-145)
[2019-05-20 08:56] VITALS: PULSE 53
[2019-05-20] MEDS: LIDOCAINE 5% PATCH 1 PATCH TOPICAL (08:56)
[2019-05-20] MEDS: carvediloL 12.5 MG TABLET PO ×2 (08:56→22:25)
[2019-05-20] MEDS: COLLAGENASE OINT 30 GM TUBE 1 APPLIC TOPICAL (08:57)
[2019-05-20] MEDS: FUROSEMIDE INJ 40 MG/4 ML VIAL 20 MG IV PUSH (08:57)
[2019-05-20] MEDS: POTASSIUM CHLORIDE 20 MEQ PACKET (FOR LIQUID) PO (08:57)
[2019-05-20] MEDS: INSULIN GLARGINE (*BKC) 100 UNITS/ML 6 UNITS SUB-Q (08:59)
[2019-05-20 09:31] LABS: Glucose Point of Care 179 (65-105)
[2019-05-20 12:00] LABS: Glucose Point of Care 242 (65-105)
[2019-05-20] MEDS: INSULIN ASPART (*BKC) 100 UNITS/ML SUB-Q (12:01)
[2019-05-20 14:00] VITALS: BP 104/58; PULSE 52; RESP 20; TEMP 36.2; O2SAT 92
[2019-05-20 14:47] VITALS: BMI 10.0
[2019-05-20 14:48] VITALS: BMI 10.0
[2019-05-20 15:08] LABS: Glucose Point of Care 192 (65-105)
--- NOTE | 2019-05-20 16:05 | PM.IMPN ---
Progress Note: A&P Assessment and Plan (1) Acute lower GI bleeding: Code(s): K92.2 - Gastrointestinal hemorrhage, unspecified <Mehnaz JaquelineLondon Berger PA-C - Last Filed: 05/20/19 16:25> Status: Acute <Mehnaz MensahlongthorNATALIE - Last Filed: 05/20/19 16:25> Assessment and Plan: Eliquis is on hold. H&H has been stable this morning, 12.4/40.6. Stable. Dr. Buchanan evaluated the patient and believes his GI bleeding came from the ulcers that were found in his distal rectum. Calculating the patient's Has-bled score he is a 5 which is high risk for bleeding at this point, 9.1% bleed. Calculating his CVA risk with [id number] is 3 which is a 3.2% risk. At this time the bleeding risk out weighs the stroke risk. I called the patient's son, Bhanu. I informed him of the findings and risk of bleeding if he returns on the Eliquis. Giving him the risks and benefits of Eliquis at this time. He understands and believes holding Eliquis would be best at this time. Will continue to monitor serial H&Hs. Gastroenterology has been consulted and their input is appreciated. - EGD on 04/13/2019 showed Duodenum was normal. The entire stomach was normal. The esophagus was normal. - Colonoscopy on 05/01/2019 showed 5 mm polyp in the descending colon, Which was removed. A few 7 mm ulcers were found in the distal rectum. No acute bleeding. Terminal ileum normal. <Mehnaz ParsonsLondon Berger PA-C - Last Filed: 05/20/19 16:25> (2) Acute combined systolic and diastolic congestive heart failure: Code(s): I50.41 - Acute combined systolic (congestive) and diastolic (congestive) heart failure <Mehnaz Berger PA-C - Last Filed: 05/20/19 16:25> Status: Acute <Mehnazlance Berger PA-C - Last Filed: 05/20/19 16:25> Assessment and Plan: The patient has acute CHF exacerbation with 3+ pitting edema to bilateral lower legs and inspiratory crackles to bilateral lungs and has been found to be hypoxic requiring 2 L of oxygen at rest. Today, the patient is resting comfortably on room air, slight crackles to lungs, improved lower extremity edema. Chest x-ray yesterday showed pulmonary edema. Will increase the patient's Lasix to IV 40 mg BID, to see if it improves his leg swelling. Will continue monitoring his renal function with the dosage change. Will monitor the patient's urine output, weights daily, symptoms and respiratory status. - Reviewed records from [facility] state that his last echocardiogram November of 2018 showed systolic ejection fraction of 30% and grade 2 diastolic dysfunction. - Echocardiogram from September 2018 showed severe systolic dysfunction, EF 28 25% with global hypokinesis. Moderate mitral valve regurgitation. Possible bicuspid aortic valve. Aortic cusps appear moderately calcified. Moderate aortic stenosis. Mild to moderate aortic valve regurgitation. <Mehnaz Berger PA-C - Last Filed: 05/20/19 16:25> (3) Elevated LFTs: Code(s): R94.5 - Abnormal results of liver function studies <Mehnaz Berger PA-C - Last Filed: 05/20/19 16:25> Status: Acute <NATALIE Ordoñez Last Filed: 05/20/19 16:25> Assessment and Plan: The patient has elevated liver enzymes and states this has been an issue since his admission at [facility]. On review of the patient's records from [facility] his LFTs were initially elevated in the 300's. Then throughout his hospitalization they ranged between 60 and 120 intermittently. Today, AST and ALT are normal. Normal Alk Phos 123. Ammonia level was normal. Improved today. No need to further evaluate liver functions. Reviewed Records from [facility] 04/12/2019 showing: - RUQ US - Atrophy of the left lobe of the liver. No hepatic mass noted. Mildly thickened gallbladder wall probably related to relativ
[2019-05-20] MEDS: FUROSEMIDE INJ 40 MG/4 ML VIAL IV PUSH (17:28)
[2019-05-20 17:36] LABS: Glucose Point of Care 171 (65-105)
[2019-05-20] MEDS: ACETAMINOPHEN 325 MG TABLET 650 MG PO (19:07)
[2019-05-20 20:43] VITALS: BP 106/74; PULSE 52; RESP 16; TEMP 36.1; O2SAT 96
[2019-05-20 22:25] VITALS: PULSE 60
[2019-05-20] MEDS: MELATONIN 3 MG TABLET PO (22:25)
[2019-05-20 23:20] LABS: Glucose Point of Care 222 (65-105)
[2019-05-21 06:00] VITALS: BP 110/63; PULSE 54; RESP 12; TEMP 36.1; O2SAT 95
[2019-05-21 06:11] LABS: Basophils Percent Auto 0.2 % (0.2-1.2); Eosinophils Absolute Auto 0.1 K/mm3 (0-0.3); Eosinophils Percent Auto 1.2 % (0-4.4); Hematocrit 40.1 % (42.0-52.0); Hemoglobin 12.4 g/dL (14.0-18.0); Immature Granulocyte Absolute 0.02 K/mm3 (0.00-0.031); Immature Granulocyte Percent A 0.4 % (0-0.5); Lymphocytes Absolute Auto 0.45 K/mm3 (0.9-3.2); Mean Corpuscular HGB Conc 30.9 g/dl (32-36); Mean Corpuscular Hemoglobin 30.6 pg (26-34); Mean Platelet Volume 12.5 fl (7.4-10.4); Monocytes Absolute Auto 0.5 K/mm3 (0.1-0.6); Neutrophils Absolute Auto 4.6 K/mm3 (1.3-6.7); Neutrophils Percent Auto 82.2 % (45.5-73.1); Platelet Count Result 240 k/mm3 (150-375); Red Blood Count 4.05 M/mm3 (4.6-6.20); Red Cell Distribution Width 19.7 % (11.5-14.5); White Blood Count 5.6 K/mm3 (4.5-10.0)
[2019-05-21 06:13] LABS: Alanine Aminotransferase 39 U/L (4-50); Albumin Level 2.7 g/dL (3.5-5.1); Alkaline Phosphatase 118 U/L (38-126); Aspartate Amino Transferase 31 U/L (17-59); Bilirubin,Total 1.5 mg/dL (0.2-1.3); Blood Urea Nitrogen 38 mg/dL (9-20); Calcium 8.1 mg/dL (8.4-10.2); Carbon Dioxide 36 mmol/L (22-30); Chloride 92 mmol/L (98-107); Estimated CRCL calculation 51 ml/min; Estimated Glomerular Filt Rate 50; Glucose 158 mg/dL (75-110); Magnesium 2.2 mg/dL (1.6-2.3); Sodium 133 mmol/L (137-145)
[2019-05-21 07:21] LABS: Folic Acid 5.9 ng/mL (2.76->20); Vitamin B12 > 1000.0 pg/mL (239-931)
[2019-05-21 08:55] LABS: Glucose Point of Care 145 (65-105)
[2019-05-21] MEDS: LIDOCAINE 5% PATCH 1 PATCH TOPICAL (08:59)
[2019-05-21] MEDS: FUROSEMIDE INJ 40 MG/4 ML VIAL IV PUSH (08:59)
[2019-05-21 09:00] VITALS: PULSE 52
[2019-05-21] MEDS: carvediloL 12.5 MG TABLET PO (09:00)
[2019-05-21] MEDS: POTASSIUM CHLORIDE 20 MEQ PACKET (FOR LIQUID) PO (09:00)
[2019-05-21] MEDS: COLLAGENASE OINT 30 GM TUBE 1 APPLIC TOPICAL (09:01)
[2019-05-21] MEDS: INSULIN GLARGINE (*BKC) 100 UNITS/ML 6 UNITS SUB-Q (09:06)
--- NOTE | 2019-05-21 10:57 | PM.DS ---
DS: Diagnosis Admitting Diagnosis Admitting Diagnosis: Gastrointestinal hemorrhage, unspecified Discharge Diagnosis (1) Acute lower GI bleeding: Code(s): K92.2 - Gastrointestinal hemorrhage, unspecified Status: Acute Assessment and Plan: Eliquis is on hold. H&H has been stable this morning, 12.4/40.1. Stable. Dr. Buchanan evaluated the patient and believes his GI bleeding came from the ulcers that were found in his distal rectum. Calculated Has-bled score he is a 5 which is high risk for bleeding at this point, 9.1% bleed; Calculated CVA risk with [id number] is 3 which is a 3.2% risk; At this time the bleeding risk out weighs the stroke risk. Patient's son, Bhanu notified and given risks/benefits of resuming Eliquis; understood holding Eliquis would be more beneficial at this time. Gastroenterology has been consulted and their input is appreciated. Will continue to hold Eliquis on d/c and have patient follow up with [facility] physician for further management D/c to [facility] EGD on 04/13/2019 showed Duodenum was normal. The entire stomach was normal. The esophagus was normal. Colonoscopy on 05/01/2019 showed 5 mm polyp in the descending colon, Which was removed. A few 7 mm ulcers were found in the distal rectum. No acute bleeding. Terminal ileum normal. (2) Acute combined systolic and diastolic congestive heart failure: Code(s): I50.41 - Acute combined systolic (congestive) and diastolic (congestive) heart failure Status: Acute Assessment and Plan: The patient has acute CHF exacerbation with 2+ pitting edema to bilateral lower legs. Patient is on RA currently; still has cough, but states he feels better today. Unable to hear crackles on lung exam today. Chest x-ray earlier in stay showed pulmonary edema. Will d/c patient on home lasix regimen Follow up with [facility] as outpatient Reviewed records from [facility] state that his last echocardiogram November of 2018 showed systolic ejection fraction of 30% and grade 2 diastolic dysfunction. Echocardiogram from September 2018 showed severe systolic dysfunction, EF 28 25% with global hypokinesis. Moderate mitral valve regurgitation. Possible bicuspid aortic valve. Aortic cusps appear moderately calcified. Moderate aortic stenosis. Mild to moderate aortic valve regurgitation. (3) Elevated LFTs: Code(s): R94.5 - Abnormal results of liver function studies Status: Acute Assessment and Plan: Today, LFTs WNL. No need to further evaluate liver functions. Reviewed Records from [facility] 04/12/2019 showing: RUQ US - Atrophy of the left lobe of the liver. No hepatic mass noted. Mildly thickened gallbladder wall probably related to relatively collapsed gallbladder. No definitive gallstones or pericholecystic fluid. Pancreas and upper abdominal aorta aorta obscured. CT Abd/Pelvis W/o Contrast- no acute abnormality in the abdomen or pelvis. Indeterminate bilateral lower lobe pulmonary nodules, possibly infectious/ inflammatory. Follow-up noncontrast CT recommitted in 3 months. (4) Elevated bilirubin: Code(s): R17 - Unspecified jaundice Status: Acute Assessment and Plan: On review of patient's prior records from [facility] his bilirubin was between 1.4 and 1.7 during hospitalization. Today, Elevated bilirubin at 1.5, which is stable. Chronically elevated from prior hospitalization. Further management per SNF physician (5) Hypokalemia: Code(s): E87.6 - Hypokalemia Status: Acute Assessment and Plan: Potassium was 4.0 this morning. Stable (6) Diabetes mellitus with hyperglycemia, with long-term current use of insulin: Qualifiers:
[2019-05-21 12:52] LABS: Glucose Point of Care 150 (65-105)
--- NOTE | 2019-05-21 13:03 | PCDIET ---
Nutrition Screen for LOS Complete: Pt current nutrition is [facility] Nutrition recommendation:Agree Last recorded weight is 98.4 kg. Bowel Motility: No BM since Monday Labs Reviewed: glucose 144, Na 136, Mg 1.5, C reactive 3.7 Meds Noted:Thiamine, Folic Acid, Prednisone, Protonix Additional Notes: Seeing pt 2/2 LOS. Pt is on appropriate diet, DBCC. He has a good appetite, eating 100% of all meals. Well nourished appearance. Glucose slightly elevated (prednisone noted). No immediate nutrition needs at this time. We will continue to follow every seven days.
--- NOTE | 2019-05-21 14:23 | PCDIET ---
Nutrition Consult Complete: Seeing pt today due to wound consult. Pt agreeable to Xander but now getting ready to d/c. Xander encouraged after d/c for wound healing. Pt encouraged to consume adequate protein intake daily as well to aid in healing. PO intake has ranged from 10-100% of meals. Appears well nourished. No wt loss noted. Glucose 158 today. If pt remains we will add Xander BID on trays and follow every three days.
== END 2019-05-21 13:14 | DRG 377 ==
LOC: ANHED 05-18 00:12 → ANH3MED 05-18 05:54
PROVIDERS: Physician Assistant; Admitting Provider Internal Medicine; Emergency Provider Family Medicine; Visit Provider Internal Medicine
DX: K92.2 Gastrointestinal hemorrhage, unspecified (principal); I50.43 Acute on chronic combined systolic (congestive) and diastolic (congestive) heart failure; E44.0 Moderate protein-calorie malnutrition; R17 Unspecified jaundice; K62.6 Ulcer of anus and rectum; E87.6 Hypokalemia; E11.65 Type 2 diabetes mellitus with hyperglycemia; N18.3 Chronic kidney disease, stage 3 (moderate); E11.319 Type 2 diabetes mellitus with unspecified diabetic retinopathy without macular edema; E11.42 Type 2 diabetes mellitus with diabetic polyneuropathy; E11.43 Type 2 diabetes mellitus with diabetic autonomic (poly)neuropathy; K31.84 Gastroparesis; E11.22 Type 2 diabetes mellitus with diabetic chronic kidney disease; N18.9 Chronic kidney disease, unspecified; I48.0 Paroxysmal atrial fibrillation; L89.159 Pressure ulcer of sacral region, unspecified stage; L89.620 Pressure ulcer of left heel, unstageable; I25.10 Atherosclerotic heart disease of native coronary artery without angina pectoris; F32.9 Major depressive disorder, single episode, unspecified; I44.7 Left bundle-branch block, unspecified; I25.5 Ischemic cardiomyopathy; E55.9 Vitamin D deficiency, unspecified; R09.02 Hypoxemia; R94.5 Abnormal results of liver function studies; Z68.28 Body mass index [BMI] 28.0-28.9, adult; Z79.4 Long term (current) use of insulin; Z85.46 Personal history of malignant neoplasm of prostate; Z89.411 Acquired absence of right great toe; Z95.810 Presence of automatic (implantable) cardiac defibrillator; Z86.73 Personal history of transient ischemic attack (TIA), and cerebral infarction without residual deficits
CPT/HCPCS: 36415; 70450; 71046; 80053; 82140; 82274; 82607; 82746; 83735; 85014; 85018; 85025; 85027; 85610; 87070; 87081; 87147; 87186; 87205; 92610; 94667; 96361; 96374; 96375; 96376; 97161; 97165; 99285; A9270; G0378; J1815; J1940; J2270; J2405; J3475; J7030